=== PATIENT | male | born 1960 | race Caucasian/White ===

== ENCOUNTER 2022-07-25 17:03 | Emergency (ER) | payer MEDICARE, MEDICAID ==
[~2022-07-25] VITALS: Ht 172.7 cm; Wt 85.0 kg
[2022-07-25 18:03] VITALS: BP 133/71
[2022-07-25] MEDS ORDERED: ondansetron 4mg rapidly disintigrating tab PO ONE (20:20)
[2022-07-25] MEDS ORDERED: morphine 4 MG/ML inj SYRINge IM ONE (20:20)
[2022-07-25] MEDS ORDERED: ketorolac trometh. 30mg/ml inj. IM ONE (20:20)
--- NOTE | 2022-07-25 20:24 | NUR ---
DR [email or web address] WAS CONTACTED ON THE PATIENT FOR A FTC.
[2022-07-25] MEDS ORDERED: ONDA4TAB12 PO (20:27)
[2022-07-25] MEDS ORDERED: HYDR-3965 PO (20:27)
== END 2022-07-25 21:42 | disposition home or self-care (01) ==
LOC: ER 17:04
DX: S82.002A Unspecified fracture of left patella, initial encounter for closed fracture (principal); W18.39XA Other fall on same level, initial encounter; Y93.89 Activity, other specified; Y92.89 Other specified places as the place of occurrence of the external cause; Y99.8 Other external cause status
CPT/HCPCS: 73564; 96372; 99284; J1885; J2270